=== PATIENT | male | born 1980 | race Caucasian/White ===

== ENCOUNTER 2020-05-19 20:03 | Emergency (ER) | payer SELFPAY ==
[~2020-05-19] VITALS: Ht 185.4 cm; Wt 122.7 kg
[2020-05-19 20:11] VITALS: Ht 185.4 cm; Wt 122.7 kg
[2020-05-19] MEDS ORDERED: ACETAMINOP160 MG/5 M PO (20:41)
[2020-05-19] MEDS ORDERED: IBUPROFEN800 MG PO (20:41)
[2020-05-19] MEDS ORDERED: KEFLEX500 MG PO (20:41)
[2020-05-19] MEDS ORDERED: TYLENOL W/CODEI1 TAB PO (22:04)
[2020-05-19 22:16] VITALS: BP 123/88
== END 2020-05-19 22:16 | disposition home or self-care (01) ==
LOC: D.ER 20:03
DX: S61.412A Laceration without foreign body of left hand, initial encounter (principal); S91.312A Laceration without foreign body, left foot, initial encounter; W19.XXXA Unspecified fall, initial encounter; Y93.9 Activity, unspecified; Y92.9 Unspecified place or not applicable; S81.012A Laceration without foreign body, left knee, initial encounter; S81.812A Laceration without foreign body, left lower leg, initial encounter